=== PATIENT | male | born 1935 | race Caucasian/White ===

== ENCOUNTER 2019-12-28 11:42 | Inpatient (IN) | payer OTHER ==
[~2019-12-28] VITALS: Ht 170.2 cm; Wt 80.3 kg
[2019-12-28 11:20] VITALS: BP 146/80
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
[2019-12-28 20:57] VITALS: BP 134/85
[2019-12-28 21:50] VITALS: BP 134/85
--- NOTE | 2019-12-29 02:27 | NUR ---
Assumed pt care at 1900. Pt alert to self only but able to make needs known,VSS.Pt took HS meds whole without any problems. Pt is up with assist of 1 to BR. Denies pain on assessment. Pt hasn't had aggressive behaviors so far. Continues on 1:1 watch for SI/HI. Resting quietly at this time w/o any distress noted will continue to monitor pt.
[2019-12-29 13:36] VITALS: BP 134/85
--- NOTE | 2019-12-29 13:47 | NUR ---
MIHAI contacted of [facility] at [phone] and spoke to Sandra in memory care who said pt. has resided there for 30 days. She said she believes pt attempted suicide after he was not allowed to leave. She said he happened to be combative with cares the same day; this is unusual for him. MIHAI reviewed pt's DPOA docs and saw that Edilberto at [phone] was listed as first and [facility] is 2nd. MIHAI asked Sandra if she had written consent from Edilberto that he wanted [facility] to be responsible for the duties at this time. She said he has given consent verbally. She said they have only had communication with [facility]. MIHAI contacted Edilberto. No answer. MIHAI lft a msg asking for a return call.
--- NOTE | 2019-12-29 15:28 | NUR ---
ASSUMED CARE AT 0700 THIS MORNING. PT. REMAINS ON 1:1 AFTER SUICIDAL GESTURE THAT BROUGHT HIM HERE INITIALLY. DR. MYRICK DOES NOT WANT TO DISCONTINUE THIS DUE TO THE SERIOUSNESS OF THE GESTURE. HE PRESENTS DEPRESSED. HE IS NOT CARRING ON MUCH CONVERSATION AT THIS POINT. HE WAS COOPERATIVE WITH TAKING HIS MEDICATION TODAY WITH RN ASSISTANCE. HE IS [place], AND WAS UNABLE TO ATTEND GROUPS. HE HAS BEEN ON THE UNIT MUCH OF THE DAY, SITTING AT A TABLE.
[2019-12-29 17:13] VITALS: BP 110/86
--- NOTE | 2019-12-30 01:39 | NUR ---
Assumed care on 12/29/19 @ 19:15, 1:1 sitter with patient for SI watch. Noted to be extrememly hard of hearing. No level of loud speaking appears to be heard. Takes meds whole, and is compliant with medication administraiton. Cooperates with assessment, HRRR, Pacemaker noted to Left chest wall. Lung sounds Clear to Auscultation. ABD Normoactive bowel sounds over a round abdomen. Continent of B&B. Unable to make questions understood in mental health assessment. Continous monitoring by 1:1 sitter in effect. Bed in low position, bed alarm set.
[2019-12-30 01:46] VITALS: BP 110/86
--- NOTE | 2019-12-30 06:42 | NUR ---
Slept 9.0 hours overnight
[2019-12-30 07:53] VITALS: BP 102/59
--- NOTE | 2019-12-30 09:07 | NUR ---
ASSUMED CARE AT 0700 THIS MORNING. HE WAS SITTING IN A RECLINING CHAIR IN THE DINING ROOM. HE IS AWAKE, CALM. HE TOOK HIS MORNING MEDICATIONS WHOLE, WITHOUT PROBLEMS NOTED. HE IS EATING FAIRLY WELL AT MEALS.
[2019-12-30 12:20] VITALS: BP 102/59
[2019-12-30 19:21] VITALS: BP 149/70
[2019-12-30 19:22] VITALS: BP 149/70
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
[2019-12-31 06:38] VITALS: BP 160/89
[2019-12-31 08:00] VITALS: BP 160/89
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
--- NOTE | 2019-12-31 14:13 | NUR ---
MIHAI faxed updates for pt to Sandra with [facility] of [facility] at [phone]. MIHAI team will continue to follow pt during his stay on this unit.
--- NOTE | 2019-12-31 22:02 | NUR ---
Care assumed of patient at 191: Patient seated in w/c in dayroom with sitter at start of shift. Patient cooperative with nurse. Patient easily frustrated and irritable at times. Patient alert and oriented to person. States that he is in an "old folks home". Re-oriented to location and time. Patient confused and forgetful. Patient having disorganized speech at times. Nurse spoke loudly in his left ear. Appeared to have some difficulty processing questions asked. When patient was asked if he was having suicidal thoughts, he looked away and shrugged his shoulders. Nurse attempted to ask follow up questions but patient stated "I'm not talking about it". Patient declined to rate anxiety and depression. Patient observed pointing around the room and talking about his . Unknown what patient was doing. Patient presents with flat affect. Denies pain or discomfort. Patient continent of bladder and did request to use the bathroom. Patient has recently retired to bed and is laying quietly at this time.
[2020-01-01 07:35] VITALS: BP 112/61
[2020-01-01 09:36] VITALS: BP 112/61
--- NOTE | 2020-01-01 12:58 | NUR ---
PATIENT WAS UP IN WHEELCHAIR, IN THE DAYROOM WHEN CARE ASSUMED, SITTER BY HIS SIDE. PATIENT IS ALERT TO SELF, FORGETFUL, AND CONFUSED. PATIENT IS HARD OF HEARING, NURSE HAS TO SPEAK LOUDLY TO HIS LEFT EAR. PATIENT TOOK ALL MEDICATION WHOLE WITHOUT DIFFICULTY. HE IS EATING MEALS, AND DRINKING FLUID WELL, ABLE TO FEED SELF. PATIENT IS CONTINENT OF BOWEL/BLADDER HAS HAD FORMED BOWEL MOVEMENT X 2. PATIENT DENIES SUICIDAL IDEATION, NO SUICIDAL GESTURE NOTED AT THIS TIME. PATIENT NOT ABLE TO APPROPRIATELY RESPOND TO FURTHER ASSESSMENT QUESTIONS DUE TO COGNITIVE IMPAIRMENT. PATIENT ATTEMPTING TO CARRY ON CONVERSATION WITH STAFF ABOUT HIS PACEMAKER, BUT GETS DISORGAIZED ALONG THE LINE. AFFECT IS FLAT, AND BLUNTED, POOR EYE CONTACT. MOOD IS EUTHYMIC. PATIENT CURRENTLY IN BED AWAKE, SITTER AT BEDSIDE. PATIENT DENIES HAVING PHYSICAL PAIN, NO SIGN OF ACUTE DISTRESS NOTED AT THIS TIME, WILL MONITOR FOR SAFETY.
--- NOTE | 2020-01-01 21:11 | NUR ---
Care assumed of patient at 1915: Patient seated in bed at start of shift. Patient restless and agitated. Staff assisted patient to a w/c to join the dayroom. Patient remained agitated, impulsive, swinging at staff, attempted to push staff down with w/c and tilt w/c backward. Nurse spoke with patient and offered magazines. Patient was able to sit in dayroom for a few minutes, quietly, looking at magazines. Nurse approached patient to complete assessment. Patient originally calm and cooperative. Alert and oriented to person only. Denied pain and discomfort. Denied depression and anxiety. When asked about having suicidal thoughts and thoughts on killing himself, he pointed around the room and stated "Why would I kill myself, I'm killing 5 of those people". When asked why he would do that, he stated "I'm going to shoot them all, then pointed his finger as if he was shooting them". Attempted to speak with patient about it being inappropriate but this caused patient to become more irritated, frustrated and angry. Nurse approached patient several minutes later with HS medication. Attempted to educate patient on medications ordered, patient took the cup of pills then threw them across the table. Attempted to speak with patient about why he threw his medications but he started to yell "just leave me alone, go ". Nurse left for only a couple minutes when patient stood and started to lunge toward 1:1 sitter being physically aggressive. Required to be held for safety and aggression by staff x3. Security notified. Patient escorted to his room by security and staff x2. Patient interrogating security about their rank and badge number. Patient originally resistive but complied with going to his room. Once in his room, he was making verbal threats about "blowing your head off", "I'm sending people to get your ass". Geodon IM administered to left arm with staff assist x3. Patient continued to flip off nurse, yell and threaten. After approximately 15 minutes, patient was able to calm down and lay quietly in bed. After approximately 1 hour, patient was very calm and cooperative, saying please and thank you, assisted to the bathroom with mod assist x1. Patient was able to retire back to bed and fall asleep without difficulties. Sitter remains with patient at this time.
[2020-01-02 09:05] VITALS: BP 138/75
[2020-01-02 10:14] VITALS: BP 138/75
--- NOTE | 2020-01-02 13:47 | NUR ---
1340 RESUMMED CARE FROM OVERNIGHT SHIFT THIS AM, PATIENT IN DAY ROOM SITTING QUIET WITH 1:1. PATIENT ATE BREAKFAST TOOK MEDICATION WITHOUT INCIDENCE. PATIENTS ABDOMEN SOFT ROUND BOWEL SOUNDS PRESENT LUNGS CLEAR, PT DENIES HI/ HAS ACTIVE SI STILL. DENIES AH/VH PATIENT STATES "THAT HIS HAS GIVEN UP ON HIM". PATIENT HAS NOT DISPLAYED ANY MAJOR BEHAVIORS HAS CONFUSION AND IS COOPERATIVE WITH CARES. WILL CONTINUE TO MONITOR PATIENT FOR SAFETY AND BEHAVIORS.
[2020-01-02 19:47] VITALS: BP 145/79
--- NOTE | 2020-01-03 01:10 | NUR ---
Assumed care on 01/02/20 @ 19:15, Alert oriented x1 to person only. 1:1 sitter with patient at all times. [place], tremors bilat in uppper extremities. Displays a flat affect. Asks about Dana, his , says that she is over there, and gestures toward a staff member. HRRR, Lungs CTA bilat, ABD Normoactive bowel sounds, Reports BM today. Denies pain, states, everybody is going to get killed. Denies SI/HI. Continent of B&B Asleep in bed @ 2200, with staff on 1:1.
--- NOTE | 2020-01-03 06:46 | NUR ---
slept 7.4 hours
[2020-01-03 07:49] VITALS: BP 110/61
--- NOTE | 2020-01-03 16:12 | NUR ---
Pt was unable to particpate in SW group today
--- NOTE | 2020-01-03 18:00 | NUR ---
pT WAS OOB WITH 1;1 SITTER IN DAY ROOM MOST OF THE DAY . MARK ATE WELL, FLUIDS ENCOURAGED. MEDICATIONS TAKEN WHOLE WITH NO RESISTANCE. PT WAS SOCIAL AND INTERACTED WITH SOME OF HIS PEERS. PT HAD 2 LARGE BM'S TODAY. ASSESSMENT , LUNGS CLEAR, PEDAL PULSE EQUAL, AND BOWEL SOUNDS FAINT. ATTENED PT AND CLIENT PARTICIPATED IN GROUPS. MOOD SEEM TO BE MORE NICK TO DAY.
[2020-01-03 18:07] VITALS: BP 110/61
--- NOTE | 2020-01-03 20:15 | NUR ---
Assumed care on 01/03/20 @ 19:15, in bed with 1:1 sitter at bedside. Awake, alert and oriented x3. Oriented to person, place, and date. Complaining of noise from another patient down the encarnacion. Will continue to monitor continually for patient safety.
[2020-01-04 08:38] VITALS: BP 101/56
[2020-01-04 10:13] VITALS: BP 101/56
--- NOTE | 2020-01-04 11:31 | NUR ---
MIHAI received a message from Josefina Valerio with Case Management stating Adrianna is requesting a copy of pt's DPOA paperwork. MIHAI faxed the document this date to fax number [phone] which was provided by Josefina.
--- NOTE | 2020-01-04 12:23 | NUR ---
RT Progress Note- Edilberto's participation in the milieu is limited d/t isolating behaviors. He retreats to his room for "naps" between meals and declines participation in structured groups. Edilberto however chose to participate in exercise group this morning (01/03) and remained fully engaged, clapping for peers and engaging with them.
--- NOTE | 2020-01-04 15:25 | NUR ---
ASSUMED CARE AT 0700 THIS MORNING. PT. ON THE UNIT, DRESSED. HE IS PLEASANT AND COOPERATIVE WITH STAFF. HE REMAINS ON 1:1 AT ALL TIMES. HE HAS NOT ATTEMPTED SUICIDE TODAY BUT WOULD NOT CONTRACT TO NOT HURT HIMSELF IF THE OPPORTUNITY ARISES. HE HAS BEEN MORE INTERACTIVE TODAY WITH STAFF. HE CONTINUES TO BE DEPRESSED WITH FLAT AFFECT. HE ATE WELL AT MEALS.
[2020-01-04 22:00] VITALS: BP 101/56
--- NOTE | 2020-01-05 02:07 | NUR ---
Assumed care of patient this pm shift. Patient in his room in bed with a 1:1 sitter. Patient in good spirits and was happy to discuss a number of different fishing trips that he has been on. Patients affect euthmyic. Patient agreed to take his night time medications. Medications were crushed and put in putting. Patient is considered a falls risk per the falls protocol. Patient denies hi. Patient neither denies or confirms suicidality. Patient ambulates in a wheelchair due to falls risk. Patient is alert and oriented x4. Patient states that his bowels moved this evening. Patients assessment shows no signs of acute distress. Vital signs are stable. We will continue to monitor per hospital protocol.
[2020-01-05 07:37] VITALS: BP 98/62
[2020-01-05 08:47] VITALS: BP 98/62
--- NOTE | 2020-01-05 09:07 | NUR ---
ASSUMED CARE AT 0700 THIS MORNING. PT. UP, DRESSED AND IN THE DINNING ROOM. HE IS COOPERATIVE, REMAINS ON 1:1 AT ALL TIMES. HE CONTINUES TO NOT CONTRACT TO NOT SELF HARM IF GIVEN THE OPPORTUNITY. HE PRESENT WITH A CONTINOUS DEPRESSED MOOD AND FLAT AFFECT. TAKES HIS MEDICATIONS WITHOUT DIFFICULTY. HE WILL ATTEND GROUPS AND THEN WISH TO LAY DOWN IN BED UNTIL THE NEXT MEAL. HE IS TALKATIVE WITH HIS 1:1 AND THE NURSE. HE CONTINUES TO STATE HE KNOWS HIS FUTURE IS NOT GOOD DUT TO THE PARKINSON'S AND DEMENTIA ASSOCIATED WITH THAT.
[2020-01-05 13:13] VITALS: BP 98/62
[2020-01-05 20:00] VITALS: BP 111/70
[2020-01-05 21:50] VITALS: BP 111/70
--- NOTE | 2020-01-06 02:16 | NUR ---
Assumed care of patient this pm shift. Patient was in good spirits coloring at a table in the [facility] [place]. Patient denies pain. Patient denies hi/si. Patient is alert and oriented x3. Patients affect is euthmyic. Patient takes pills whole with thin fluids. Patient is medication adherent. Patient is a falls risk and is wearing a yellow shirt and yellow slippers. Patients assessment shows no signs of acute distress. Lung sounds are clear bilaterally. Heart tones are present with s1 s2. Bowel sounds are present. Patient is a 1:1 due to si. Patient states that he is regular with bowel movements. We will continue to monitor per hospital policy.
[2020-01-06 13:12] VITALS: BP 109/65
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
--- NOTE | 2020-01-06 19:18 | NUR ---
Care of patient assumed at 1915. Patient is sitting in day room in recliner. Calm and cooperative with assessment. Confused but pleasant. A/O x 2. Denies pain. Denies SI/HI. States he wants to get up and walk more so that he can be discharged. Talks at length about wanting to go to the fair and dance with his . Notified COMMERCIAL SALES CONSULTANT that he needed to use the toilet, and was assisted to his bathroom. Compliant with HS meds. Requested to go to bed shortly after. Assisted to bed and was sleeping when next 12 minute check completed.
[2020-01-06 20:02] VITALS: BP 119/81
[2020-01-07 07:41] VITALS: BP 104/52
--- NOTE | 2020-01-07 10:22 | NUR ---
Nutrition: Assessed due to LOS. Admit: suicidal ideation, here w/ dementia, hallucinations, impulsive. Hx includes dementia, Parkinson's disease, HTN, hypothyroidism, hx recurrent falls. Pt is deemed a high risk pt (given SI) and on 1:1 monitoring. On a regular diet and eating incredible. Pt has consumed 100% of ALL meals. 100% meal average the last 7 days, 12/30 - 01/05. Psych notes indicate pt still has clear confabulation and confusion. Note low dose remeron just added which can have positive nutrition side effects, though nutrition intake already doing so well. No weight hx to review. Pt at 175#, BMI 27.4 kg/m2. No active nutrition problems or interventions needed at this time. Maintain low nutrition risk.
--- NOTE | 2020-01-07 13:03 | NUR ---
VISIBLE IN DAYROOM WITH PEERS-ATTENDS SCHEDULED ACTIVITIES WITH GOOD LEVEL OF PARTICIPATION. ORIENTED TO PERSON/HOSPITAL-CONVERSATION AT TIMES DOSORGANIZED AND NON-GOAL DIRECTED BUT NO NOTED PSYCHOSIS DURING INTERACTIONS WITH THIS RN. DOES BECOME MILDLY AGITATED WHEN ASKING TO GO TO ROOM "THESE PEOPLE GET TO ME" INFORMED OF MD ORDER TO REMAIN OUT OF ROOM DURING DAY TO PATRICIA HE STATES ANGRILY "I AM YOU BOSS NOT THE DR" TRMAINS ON HIGH FALLS RISK WITH FALLS PRECAUTIONS IN PLACE-REMAINS IMPULSIVE TTEMPTING TO GET UP WITHOUT ASSIST 2-3 YIMES-MILD AGITATION WITH REDIRECTION. APPETITE GOOD. DENIES PAIN
[2020-01-07 19:30] VITALS: BP 132/74
--- NOTE | 2020-01-08 04:04 | NUR ---
01-08-20 CARE TRANSFERED AT 1914. 1919 PT SUPINE RESTING WITH EYES CLOSED, EASILY AROUSED TO VOICE, PT PRESENT CALM AND COOPERATIVE, AAOX2, VSS, RR EVEN AND NONLABORED. PT DENIES ANY PAIN AND SI/SH/HI/VAH AT THIS TIME. PT CURRENTLY 1:1 AT ALL TIMES PER SHIFT REPORT. DURING MEDICATION ADMIN. PT HAD ZERO DIFFICULTIES. THROUGHOUT NURSING ROUNDS ZERO S/S OF ACUTE EMOTIONAL OR MEDICAL DISTRESS NOTED. WILL CONTINUE TO MONITOR PER B PROTOCOL.
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
[2020-01-08 09:12] VITALS: BP 125/76
[2020-01-08 10:34] VITALS: BP 125/76
--- NOTE | 2020-01-08 12:50 | NUR ---
1200 RESUMMED CARE FROM OVERNIGHT SHIFT THIS AM, PATIENT IN DAY ROOM TALKING WITH ONE TO ONE. PATIENT ATE BREAKFAST TOOK MEDICATION WITHOUT INCIDENCE. PATIENTS ABDOMEN SOFT ROUND BOWEL SOUNDS PRESENT LUNGS CLEAR, PATIENT UP WALKING HALLS WITH WALKER. PATIENT AROUND 12:30 STARTED BEING TEARFUL AND ASKING ABOUT . I TALKED WITH PATIENT AND ASKED HIM WHY HE IS CRYING HE STATES HIS HEART HURTS. I WENT TO GET PATIENTS LUNCH BECAUSE HE REFUSED AT FIRST. PATIENT IS NOW SITTING UP EATING HIS LUNCH, AND I ENCOURAGED PATIENT TO TALK TO HIS ONE TO ONE AND NOT ISOLATE SO MUCH. PATIENT DENIES HI/AH/VH AT PRESENT, PATIENT STILL HAS SI AT PRESENT WILL CONTINUE TO MONITOR PATIENT FOR SAFETY AND BEHAVIORS.
[2020-01-08 18:52] VITALS: BP 127/99
--- NOTE | 2020-01-09 03:32 | NUR ---
01-07-20 CARE TRANSFERED 5 PT IN DAY ROOM IN RECLINER WITH 1:1; 193 PT AAOX2, SKIN W/D, VSS, RR EVEN AND NONLABORED ON RA. PT PRESENTS A LITTLE IRRITATED, REMAINED CALM AND COOPERATIVE THROUGHOUT NURSING ASSESSMENT. PT DENIES ANY PAIN. PT IS CURRENTLY ON 1:1 AT ALL TIMES R/T SI WITH UNSUCCESSFULLY ATTEMPT(S), PT DENIES ANY SI/SH/HI/VAH AT THIS TIME. DURING MEDICATION ADMIN PT HAD ZERO DIFFICULTIES PT REPORTED HE IS NOT HAVING SI. APPROXIMATELY 2300 PT WAS MOVED TO DAY ROOM R/T STAFFING CHALLENGE AND NO 1:1 AVAILABLE PER DIRECTOR OF [facility]. THROUGHOUT NURSING ROUNDS ZERO ACUTE S/S OF EMOTIONAL OR MEDICAL DISTRESS. WILL CONTINUE TO MONITOR PER [facility] PROTOCOL.
[2020-01-09 07:46] VITALS: BP 136/68
--- NOTE | 2020-01-09 08:40 | NUR ---
Assumed care 0700. Up self feeding for breakfast after tray set up. Alert oriented to person and place. Noticeable hand tremors bilaterally. He uses walker, is on 1 to 1 observation with stand by assist for toileting..
[2020-01-09 14:30] LABS: ABSOLUTE NEUTROPHILS 2.9 thou/uL (1.4-8.2); EOSINOPHILS 3.6 % (0.0-3.0); HEMATOCRIT 43.2 % (42.0-52.0); HEMOGLOBIN 14.1 gm/dL (14.0-18.0); LYMPHOCYTES 27.6 % (24.0-44.0); MCH 28.6 pg (26.0-34.0); MCHC 32.6 g/dL (28.0-37.0); MCV 87.7 fL (80.0-100.0); MONOCYTES 7.9 % (1.0-8.0); PLATELET COUNT 235 thou/uL (150-400); POLYS 59.9 % (36.0-66.0); RBC 4.93 mil/uL (4.50-6.00); RDW 14.5 % (10.5-14.5); WBC 4.9 thou/uL (4.0-11.0)
[2020-01-09 14:47] LABS: ALBUMIN 3.9 g/dL (3.4-5.0); CALCIUM 9.1 mg/dL (8.5-10.1); CREATININE 1.2 mg/dL (0.7-1.3); MAGNESIUM 2.2 mg/dL (1.8-2.4); TOTAL BILIRUBIN 0.4 mg/dL (0.2-1.0); TOTAL PROTEIN 7.7 g/dL (6.4-8.2)
[2020-01-09 15:11] LABS: TSH 0.749 uIU/mL (0.358-3.740)
--- NOTE | 2020-01-09 18:10 | NUR ---
Patient was scanned late AM with 87 ml. residual after voiding in toilet thus not requiring straight cathing. Quiet, pleasant, compliant with meds. LBM 01/09/20. Lungs clear, heart rhythm regular, abdomen + bowel sounds, Lower legs/ankles with edema. Toenails trimmed with a slight willam from a nail on left foot 2nd toe. Toe cleansed, bandaid applied. Denies SI/HI/AH/VH. Call placed to Dr. Gee to report bladder scanner result with no return call yet. Pt. has a white scab on left buttock-tiny. Skin protective ointment OTC applied. He was not observed by this advertising writer as initiating conversation. Hearing aids for the night removed to green container labelled with his name with battery compartment open to conserve battery power. Has had sitter 1:1 out of dayroom; in dayroom allowed to mingle with peers which mostly he observed.
[2020-01-09 20:41] VITALS: BP 138/82
--- NOTE | 2020-01-10 05:22 | NUR ---
Assumed care on 01/09/20, 1:1 when in room. Cooperated with assessment, A&Ox2 to self and knows is in hospital. Last reported bm on 01/08. Cooperates with medication administration, up to toilet several times in the night. On fall precautions, and uses a walker to ambulate. @ 0500 C/O lower back pain. Muscle rub applied to lower back and Tylenol 650 provided. Will continue to monitor continually with 1:1 observer while in room. Bed in low position.
[2020-01-10 08:52] VITALS: BP 106/67
--- NOTE | 2020-01-10 14:02 | NUR ---
MIHAI spoke with Sandra with [facility] of [facility] and arranged for d/c to occur on 01/11 @11am. Sandra will arrange transportation. MIHAI provided an update to [facility]. MIHAI faxed updates from the weekend to Sandra. MIHAI team will continue to follow pt during his stay on this unit.
--- NOTE | 2020-01-10 17:21 | NUR ---
pt wasin day room this am wheni entred the unit. Pt appitite is fair, pills taken whole with out resistance, Assesment , lungssounded clear,x2 bowel sounds ctive, last bm today x3 small formed stools. pdal pulse equal. Pt attended groups today and participated. covid19 testdone today nd sent to lab. Pt saaaaaaaaaaaaid he felt happier than he been in a while. pt attended pt..wlking in hallways with walker. .Fluids encouraged,
[2020-01-10 19:33] VITALS: BP 116/70
--- NOTE | 2020-01-11 01:25 | NUR ---
ASSUMED CARE ON 01/10/20, @ 19:15. COOPERATIVE WITH CARE AND ASSESSMENT. HRRR, LUNGS CTA, ABD N X 4Q. REPORTS THE HOSPITAL FOOD IS GOOD. BMX3 TODAY. DENIES SI HI, DENIES ANXIETY AND DEPRESSION. TALKS ABOUT PEOPLE HURTING OTHER PEOPLE. REINFORCED PATIENT'S SAFETY HERE.
[2020-01-11 01:57] VITALS: BP 116/70
[2020-01-11 07:42] VITALS: BP 115/76
[2020-01-11 08:30] VITALS: BP 115/76
--- NOTE | 2020-01-11 09:13 | NUR ---
PT HAS BEEN UP WITH WALKER WALKING AROUND SOMETIMES FAST, ENCOURAGED PT TO SLOW DOWN. PT TOOK MEDS WITHOUT ANY ISSUES. PT PAPER TOWELS ARE TAKEN OUT OF ROOM PER DR. PADILLA.
--- NOTE | 2020-01-11 12:16 | NUR ---
RT Progress Note- Edilberto has become an active participant within the milieu and recreation therapy groups. He particularly enjoys music and exercise groups. He has not expressed or displayed any suicidal thoughts or behaviors during RT interaction. His mood has improved.
--- NOTE | 2020-01-11 13:20 | NUR ---
MIHAI spoke with Sandra after receiving a vm that [facility] staff are concerned about pt still being on -1 and his behavior on 01/06. She is asking before pt returns for pt's 1 to be removed. MIHAI relayed this information to Dr. Huerta who agreed d/c pt on Friday. MIHAI provided an update to [facility]. MIHAI team will continue to follow pt during his stay on this unit.
[2020-01-11 19:24] VITALS: BP 132/63
--- NOTE | 2020-01-12 03:34 | NUR ---
01-11-20 CARE TRANSFERED 1914 OBSERVED PT IN ROOM SITTIN ON BED. 1944 PT AAOX2, SKIN W/D, VSS, RR EVEN AND NONLABORED ON RA. PT WAS CALM AND COOPERATIVE DURING NURSING ASSESSMENT. PT IS CURRENTLY ON 1:1 R/T SI. PT DENIES SI/HI/VAH AT THIS TIME. PT DENIES PAIN. DURING MEDICATION ADMIN PT HAD NO DIFFICULTIES. THROUGHOUT NURSING ROUNDS PT HAS NO S/S OF ACUTE EMOTIONAL OR MEDICAL DISTRESS. WILL CONTINUE TO MONITOR PER [facility] PROTOCOL.
[2020-01-12 07:49] VITALS: BP 100/59
--- NOTE | 2020-01-12 09:38 | NUR ---
Assumed care 0700. Bo lab=reported Covid=Negative. Remains on 1 to 1 observation for safety from suicidal ideation/behaviors. Denied pain/other complaints.
--- NOTE | 2020-01-12 13:34 | NUR ---
MIHAI scheduled an appt with Dr. Huerta in the outpatient clinic for February 15, 2020 @1300. MIHAI provided this update to Libertad who asked fro a telehealth appt. MIHAI contacted Dr. Huerta's office and switched the appt to telehealth. MIHAI also emailed Libertad a copy of a MIHAI Handout for pt. MIHAI team will continue to follow pt during his stay on this unit.
[2020-01-12 18:06] VITALS: BP 100/59
--- NOTE | 2020-01-12 18:14 | NUR ---
ASSUMED CARE AT 0700 THIS MORNING. PT. HAS BEEN UP AND ON THE UNIT MUCH OF THE DAY. NO NEW PROBLEMS NOTED. HE IS DENYING SI/HI AND AVH AT THIS TIME. HE HAS TAKEN HIS MEDICATIONS WITHOUT PROBLEM NOTED. HE IS PLEASANT AND COOPERATIVE WITH STAFF THEY ARE WORKING WITH HIM. HE IS TAKING HIS MEDICATIONS WITHOUT PROBLEMS NOTED.
[2020-01-12 19:35] VITALS: BP 129/75
--- NOTE | 2020-01-13 03:44 | NUR ---
01-12-20 CARE TRANSFERED AT 1914 OBSERVED PT SUPINE IN BED RESTING WITH EYES CLOSED. 1939 PT SITTING ON SIDE OF BED WITH EYES OPEN, PT AAOX2, VSS, RR EVEN AND NONLABORED ON RA. PT DENIES ANY PAIN OR SI/SH/HI/VAH. PT REMAINED CALM AND COOPERATIVE DURING NURSING ASSESSMENT. DURING MEDICATION ADMIN. PT HAD NO DIFFICULITES DURING MEDICATION ADMIN. LATER ASSISTED PT UP TO BATHROOM AND PT AGAIN DENIED SI/SH/HI; WILL CONTINUE TO MONITOR FOR THIS IS DAY ONE THAT PT HAS BEEN OFF 1:1 FOR SI ATTEMPT(S). WHEN ASKING PT AGAIN PT SMILED AND STATED "LIV OK, LIV READY TO GO HOME". THROUGHOUT NURSING ROUNDS ZERO S/S OF ACUTE EMOTIONAL OR MEDICAL DISTRESS. WILL CONTINUE TO MONITOR PT PER [facility] PROTOCOL.
[2020-01-13 07:25] VITALS: BP 97/57
--- NOTE | 2020-01-13 07:46 | NUR ---
0700 ASSUMED CARE OF PATIENT, PATIENT SITTING IN DAYROOM AT THAT TIME. 0735 PATIENT SITTING QUIETLY AT TABLE. NO C/O PAIN, DENIES NEEDS. PATIENT STATES DAILY GOAL IS "TO GET OUT OF HERE". PATIENT STATES CONCERN IS "SELLING HIS HOUSE, NEIGHBOR IS HELPING ME". LUNG SOUNDS CLEAR, BS ACTIVE. VS- BP 97/57 P 63 RESP 16 TEMP. 98.0 O2 SATS 96%. PATIENT NOTED WITH YELLOW SHIRT ON AND CHAIR ALRM IN PLACE.
--- NOTE | 2020-01-13 12:04 | NUR ---
MIHAI faxed updates to BD of OP. MIHAI contacted Sandra to confirm pt's discharge tomorrow. She said she will review pt's updates and contact SW within an hour. SW team will continue to follow pt during his stay on this unit.
[2020-01-13 19:40] VITALS: BP 114/73
[2020-01-13] MEDS ORDERED: ARICEPT10 M1 PO (20:33)
[2020-01-13] MEDS ORDERED: NEURONTIN600 MG PO (20:34)
[2020-01-13] MEDS ORDERED: OLANZAPINE ODT5 MG PO (20:34)
[2020-01-13] MEDS ORDERED: NAMENDA 5 MG TAB5 M1 PO (20:35)
[2020-01-13] MEDS ORDERED: ZYPREXA ZYDIS5 MG PO (20:35)
[2020-01-13] MEDS ORDERED: CARBIDOPA-LEVO1 EAC9 PO (20:35)
[2020-01-13] MEDS ORDERED: BUSPIRONE HCL5 MG PO (20:35)
[2020-01-13] MEDS ORDERED: MELATONIN5 M1 PO (20:36)
[2020-01-13] MEDS ORDERED: REMERON 30 MG T30 M1 PO (20:36)
[2020-01-13 22:20] VITALS: BP 114/73
--- NOTE | 2020-01-14 01:19 | NUR ---
Assumed care of patient this pm shift. Patient in good spirits sitting in the mileu at the start of the shift. Patient denies pain, patient denies hi/si. Patients affect is blunted. Patient is alert and oriented to person, place, and situation. Patient takes medications whole with thin fluids. Patient is medication adherent. Patient ambulates with a walker. Patients assessment shows no signs of acute distress. Patients assessment shows clear breath sounds, active bowel sounds, and s1 s2 heard with auscultation. Patient does not show any signs of aggressive behaviors. We will continue to monitor per hospital protocol.
[2020-01-14 07:24] VITALS: BP 132/61
--- NOTE | 2020-01-14 11:08 | NUR ---
MIHAI D/C NOTE MIHAI faxed discharge docs and COVID results to Sandra Miles of OP. MIHAI will file these docs with confirmation page in pt's file. No other needs to address at this time.
--- NOTE | 2020-01-14 11:36 | NUR ---
DISCHARGE INSTRUCTIONS REVIEWED WITH DAUGHTER DEREK FIELDS-SHE HAD SEVERAL QUESTIONS ABOUT MEDICATIONS AND EDUCATION PROVIDED-SHE STATES UNDERSTANDING AND DENIES QUESTIONS OR CONCERNS. [facility] CALLED FOR NURSING REPORT AT 0830 AND AFTER BEING TRANSFERED TO SEVERAL NURSING STATIONS MESSAGE LEFT FOR [facility] NURSING STAFF TO CALL FOR NURSING REPORT IF NEEDED. PT DC AT 1130 VIA WC ACCOMPNIED BY HOSPITAL STAFF-ALERT AND UP 9IN MOOD AT TIME OF DC-DENIES SI/SH/HI OR COMPLAINTS OF PAIN/DISCOMFORT-PERSONAL BELONGINGS SENT WITH PT.
== END 2020-01-14 11:30 | DRG 57 ==
LOC: SBH 11:42
PROVIDERS: Internal Medicine; ADMIT Psychiatry & Neurology Psychiatry; ATTEND Psychiatry & Neurology Psychiatry
DX: G20 Parkinson's disease (principal); F02.81 Dementia in other diseases classified elsewhere, unspecified severity, with behavioral disturbance; I11.0 Hypertensive heart disease with heart failure; T14.91XA Suicide attempt, initial encounter; E03.9 Hypothyroidism, unspecified; J44.9 Chronic obstructive pulmonary disease, unspecified; I50.9 Heart failure, unspecified; K21.9 Gastro-esophageal reflux disease without esophagitis; N40.0 Benign prostatic hyperplasia without lower urinary tract symptoms; G62.9 Polyneuropathy, unspecified; Z66 Do not resuscitate; F32.9 Major depressive disorder, single episode, unspecified; G47.33 Obstructive sleep apnea (adult) (pediatric); Z20.828 Contact with and (suspected) exposure to other viral communicable diseases; Z88.8 Allergy status to other drugs, medicaments and biological substances; Z79.899 Other long term (current) drug therapy
CPT/HCPCS: 10880

== ENCOUNTER 2020-12-14 14:56 | Emergency (ER) | payer OTHER ==
[~2020-12-14] VITALS: Ht 182.9 cm; Wt 113.4 kg
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
[~2020-12-14 14:56] MED LIST: ARICEPT10 M1 PO; BUSPIRONE HCL5 MG PO; CARBIDOPA-LEVO1 EAC9 PO; MELATONIN5 M1 PO; NAMENDA 5 MG TAB5 M1 PO; NEURONTIN600 MG PO; OLANZAPINE ODT5 MG PO; REMERON 30 MG T30 M1 PO; ZYPREXA ZYDIS5 MG PO
[2020-12-14 15:39] LABS: ABSOLUTE NEUTROPHILS 3.2 thou/uL (1.4-8.2); BASOPHILS 0.9 % (0.0-2.0); EOSINOPHILS 3.3 % (0.0-3.0); HEMATOCRIT 37.6 % (42.0-52.0); HEMOGLOBIN 12.2 gm/dL (14.0-18.0); LYMPHOCYTES 25.1 % (24.0-44.0); MCH 28.4 pg (26.0-34.0); MCHC 32.6 g/dL (28.0-37.0); MCV 87.1 fL (80.0-100.0); PLATELET COUNT 212 thou/uL (150-400); POLYS 61.7 % (36.0-66.0); RBC 4.31 mil/uL (4.50-6.00); RDW 14.9 % (10.5-14.5); WBC 5.2 thou/uL (4.0-11.0)
[2020-12-14 15:51] LABS: ANION GAP 6 mmol/L (7-16); BUN 29 mg/dL (7-18); CALCIUM 8.6 mg/dL (8.5-10.1); CHLORIDE 106 mmol/L (98-107); CO2 30 mmol/L (21-32); GLUCOSE 108 mg/dL (74-106); POTASSIUM 4.1 mmol/L (3.5-5.1); SODIUM 142 mmol/L (136-145)
[2020-12-14 15:56] LABS: ALBUMIN 3.4 g/dL (3.4-5.0); SGOT 21 U/L (15-37); SGPT 21 U/L (30-65); TOTAL BILIRUBIN 0.3 mg/dL (0.2-1.0); TROPONIN-I <0.06 ng/mL (<0.06)
[2020-12-14 15:56] LABS: URINE BILIRUBIN NEGATIVE (Negative); URINE BLOOD 2+ (Negative); URINE CLARITY CLEAR; URINE COLOR YELLOW; URINE GLUCOSE-RANDOM* NEGATIVE (Negative); URINE KETONES NEGATIVE (Negative); URINE LEUKOCYTES-REFLEX NEGATIVE (Negative); URINE NITRITE-REFLEX NEGATIVE (Negative); URINE PROTEIN (DIPSTICK) NEGATIVE (Negative); URINE SPECIFIC GRAVITY >= 1.030 (1.005-1.035); URINE UROBILINOGEN 0.2 E.U./dl (0.2-1.0)
[2020-12-14 16:03] LABS: CASTS None Seen /LPF (None Seen); SQUAMOUS 0-3 Few /LPF (0-3)
[2020-12-14 16:04] LABS: CRYSTALS None Seen /LPF (None Seen); URINE RBC 3-10 Few /HPF (NONE SEEN); URINE WBC-REFLEX 0-5 Rare /HPF (0-5)
[2020-12-14 16:05] LABS: BACTERIA-REFLEX 1-9 Few /HPF (None Seen)
[2020-12-14 16:37] VITALS: BP 133/77
--- NOTE | 2020-12-15 07:19 | EKG ---
[place] [address] [address] [place] [address] ELECTROCARDIOGRAM REPORT Name: MARK HAND [id number] Admission: 12/14/20 Attend Phys: Discharge: 12/14/20 Date of : 35 Report #: [id number] [facility] ED Test Date: 2020-12-14 Test Time: 15:30:49 Pat Name: MARK HAND Department: Room: Gender: Avionics Electronics Technician: ROBERTARIANALIANNA : 1935 Requested By: Michael Hartmann Order Number: [id number] MD: Jeremy Alarcon Measurements Intervals [place] Rate: 59 P: 12 WV: 199 QRS: -56 QRSD: 97 T: 43 QT: 432 QTc: 428 Interpretive Statements Sinus rhythm Abnormal R-wave progression, early transition No previous ECG available for comparison Electronically Signed On 12-15-2020 7:18:50 CDT by Jeremy Alarcon [email or web address] <ELECTRONICALLY SIGNED> By: Jeremy Alarcon MD, [facility] 12/15/20 0718 1530 1530 Jeremy Alarcon MD, FACC /EPI
== END 2020-12-14 16:40 ==
LOC: ER 14:56
PROVIDERS: Emergency Medicine
DX: R45.1 Restlessness and agitation (principal); Z20.822 Contact with and (suspected) exposure to COVID-19; E03.9 Hypothyroidism, unspecified; Z95.0 Presence of cardiac pacemaker; Z88.8 Allergy status to other drugs, medicaments and biological substances

== ENCOUNTER 2020-12-14 17:10 | Inpatient (IN) | payer OTHER ==
[~2020-12-14] VITALS: Ht 165.1 cm; Wt 86.2 kg
[2020-12-14 18:00] VITALS: BP 142/69
[2020-12-14 18:12] LABS: CHOLESTEROL 182 mg/dL (<200); HDL CHOLESTEROL 38 mg/dL (>40); LDL CHOLESTEROL 100 mg/dL (<100); TC:HDL 4.8 Ratio (Not establshd); TRIGLYCERIDE 220 mg/dL (<150); VLDL 44 mg/dL (<40)
[2020-12-14 18:13] LABS: SERUM ASSESSMENT Clear
[2020-12-14 19:48] VITALS: BP 149/62
[2020-12-14 20:20] VITALS: BP 149/62
--- NOTE | 2020-12-14 20:23 | NUR ---
1455 PATIENT ADMITED TO [facility] VIA CART. ED STAFF ASSISTED PT TO BR PT VOIDED. PATIENT ASSISTED TO BED X2 ASSIST. PATIENT DRESSED IN SHIRT AND BRIEF. PATIENT CALM, [place] SO PATIENT UNABLE TO ANSWER QUESTION QUICKLY. VS 142/69, 93, 18, 96.1, 97%. ID BRACLET APPLIED, FALL RISK AND ALLERGY BRACLET APPLIED. LS CLEAR, BS ACTIVE, ABD SOFT. NO C/O PAIN. SKIN INTACT. SCARS TO SCALP AREA NOTED. PATIENT SITS ON SIDE OF BED FOR DINNER, EATS 100%. WHEN ADVICE NURSE ASKS PT ABOUT SI, PATIENT STATES NOT RIGHT NOW. PATIENT RESTING IN BED QUIETLY WITH BED ALARM ON.
--- NOTE | 2020-12-15 02:12 | NUR ---
PATIENT CARE WAS RESUMED AT 1900. HE WAS IN HIS ROOM. ALERT AND ORIENTED. ABLE TO VERBALIZE NEEDS. LUNGS ARE CLEAR, BS ACTIVE 4 QUAD. ABD IS SOFT N0N TENDER. HE DENIES SI/AVH/HI AND PAINS. HE TOOK HIS MEDS WHOLE.BED IS ALARMED, LOCKED AND LOW. ABLE TO VERBALIZE ANY ISSUES. CONTINUE CARE AND MONITOR
[2020-12-15 04:06] LABS: GLYCOHEMOGLOBIN (HGB A1C) 5.8 % (4.8-5.6)
--- NOTE | 2020-12-15 09:44 | NUR ---
Nutrition: Pt admitted with major depressive disorder to [facility] unit. PMH: dementia, Parkinsons, HTN, falls. Pt was admitted last summer and ate 100% of meals, So far eating 100% of meals this admit also. Current weights up 11# since last admit. Meds: Vitamin D, mirtazapine. Hyperlipidemia noted. A1C 5.8. No acchuchecks being taken. Consider adding heart healthy diet restrictions if physician deems appropriate. Low nutrition risk
[2020-12-15 10:02] VITALS: BP 130/65
--- NOTE | 2020-12-15 12:53 | NUR ---
1353 RESUMMED CARE FROM OVERNIGHT SHIFT THIS AM, PATIENT IN DAY ROOM QUIET IN ELISA CHAIR. PATIENT ATE BREAKFAST TOOK MEDICATION WITHOUY INCIDENCE. PATIENT UNABLE TO TELL ME ABOUT SI/HI/AH/VH AT PRESENT DUE TO COGNITIVE DISTURBANCE. PATIENTS ANDOMEN SOFT BOWEL SOUNDS PRESENT; PATIENT HAD MEDIUM SIZE BOWEL MOVEMENT. PATIENTS LUNGS CLEAR PATIENT THIS AM WHEN TAKING PATIENT TO PATIENT RESTROOM; PATIENT TRIED TO SPIT ON ME. PATIENT IS SOMETIMES IMPULSIVE WHEN TRYING TO DO CARES AND WILL TRY TO GET UP BY HIMSELF. PATIENT IS REDIRECTABLE WILL CONTINUE TO MONITOR PATIENT FOR SAFETY AND BEHAVIORS.
[2020-12-15 19:52] VITALS: BP 123/53
[2020-12-16 00:08] VITALS: BP 123/53
--- NOTE | 2020-12-16 02:15 | NUR ---
12/15/2020 - assumed care from day shift nurse, sitting in day room talking to self, talking about different things did mention that he knew the current president. disorganized thoughts and impulsive as far as getting up without waiting for assistance. Pt is alert to self and pleasant, denies SI/HI/AH/VH. Will continue to monitor per [facility] protocol.
[2020-12-16 06:04] LABS: HEMATOCRIT 40.1 % (42.0-52.0); HEMOGLOBIN 13.1 gm/dL (14.0-18.0); MCH 28.5 pg (26.0-34.0); MCHC 32.5 g/dL (28.0-37.0); MCV 87.7 fL (80.0-100.0); RBC 4.58 mil/uL (4.50-6.00); RDW 14.7 % (10.5-14.5)
[2020-12-16 06:26] LABS: CALCIUM 8.9 mg/dL (8.5-10.1); CREATININE 1.1 mg/dL (0.7-1.3); MAGNESIUM 2.2 mg/dL (1.8-2.4); POTASSIUM 4.2 mmol/L (3.5-5.1)
[2020-12-16 06:48] LABS: FOLIC ACID 12.6 ng/mL (8.6-58.9)
[2020-12-16 09:30] VITALS: BP 130/73
--- NOTE | 2020-12-16 11:39 | NUR ---
PATIENT WAS IN BED ASLEEP WHEN CARE ASSUMED, ASSISTED UP IN W/C BY TWO STAFF. PATIENT TAKEN TO DAYROOM FOR BREAKFAST, HE FED SELF, CONSUMED ABOUT 75%, HE TOOK MORNING MEDICATION WHOLE WITHOUT DIFFICULTY. PATIENT IS ALERT AND ORIENTED X 1, HE IS FORGETFUL, AND PLEASANTLY CONFUSED. PATIENT DENIES SUICIDAL IDEATION, NOT ABLE TO APPROPRIATELY RESPOND TO FURTHER ASSESSMENT QUESTIONS DUE TO COGNITIVE IMPAIRMENT. PATIENT HAD EMESIS X 1 -UNDIGESTED FOOD. DR. HILL NOTIFIED, HE GAVE ORDER FOR COMPAZINE 5MG Q 4HR PRN, AND KUB 1 VIEW. COMPAZINE GIVEN, AWAITING RADIOLOGY TO COMPLETE KEB. PATIENT DENIES HAVING PHYSICAL PAIN. AFFECT IS FLAT/BLUNTED, MOOD IS DEPRESSED. NO SIGN OF ACUTE DISTRESS NOTED AT THIS TIME, WILL MONITOR FOR SAFETY.
[2020-12-16 19:18] VITALS: BP 108/65
--- NOTE | 2020-12-17 00:33 | NUR ---
12/16/20- assume care from day shift, pt is alert to self not place or time. Pt was wandering in his w/c and he was found in another pt room trying to use the bathroom and go to bed. He was difficult to redirect but he eventually allowed the PCT and nurse to take him to his correct room. He then converse with this nurse. He took his medication whole with water without difficulty. Pt encouraged to drink water. Lungs clear, HRR, Active bowel sounds, will continue to monitor through out shift.
[2020-12-17 00:53] VITALS: BP 108/65
--- NOTE | 2020-12-17 00:53 | NUR ---
Pt O2 sat was low earlier 83, pt color was within normal limits, not short of breath, O2 sat rechecked and it was 96% on room air, pt not exhibiting any s/s of dyspnea, or tachypnea. will continue to monitor.
[2020-12-17 08:50] VITALS: BP 115/62
[2020-12-17 09:30] VITALS: BP 115/62
--- NOTE | 2020-12-17 12:35 | NUR ---
1235 RESUMMED CARE FROM OVERNIGHT SHIFT THIS AM, PATIENT IN DAY ROOM QUIET. PATIENT ATE BREAKFAST TOOK MEDICATION WITHOUT INCIDENCE. PATIENT CANNOT TELL ME ABOUT SI/HI/AH/VH DUE TO COGNITIVE DISORDER. PATIENTS ABDOMEN SOFT BOWEL SOUNDS PRESENT PATIENTS LUNGS CLEAR. PATIENT SITS IN GROUP MINIMAL PARTICIPATION. WILL CONTINUE TO MONITOR PATIENT FOR SAFETY AND BEHAVIORS.
[2020-12-17 19:11] VITALS: BP 120/48
[2020-12-17 20:40] VITALS: BP 120/48
--- NOTE | 2020-12-17 23:53 | NUR ---
PATIENT CARE WAS RESUMED AT 1900. HE WAS ALERT AND ORINETD WITH SOME CONFUSSION. LUNGS ARE CLEAR BS ACTIVE X4 QUADS. HE DENIES, SI. AVH/ HI. HE TOOK HIS MEDS WHOLE AND HE IS A MAX ASSIST WITH CARE. BED IS LOW, ALARMED, AND LOCK. HE AHS YELLOW SOCKS AND TOP ON. Q12 MINS CHECK IS ONGONIG. NO BEHAVOIR NOTED AT TIHS TIME. CONTINUE CARE AND MONITOR.
[2020-12-18 08:34] VITALS: BP 129/73
[2020-12-18 11:30] VITALS: BP 129/73
--- NOTE | 2020-12-18 13:14 | NUR ---
1314 RESUMMED CARE FROM OVERNIGHT SHIFT THIS AM. PATIENT IN DAY ROOM SITTING QUIET. PATIENT ATE BREAKFAST TOOK MEDICATION WITHOUT INCIDENCE. PATIENT DENIES SI/HI/AH/VH AT PRESENT PATIENT HAS NOT DISPLAYED BEHAVIORS IN THE LAST 3 DAYS. PATIENTS ABDOMEN SOFT BOWEL SOUNDS PRESENT PATIENTS LUNGS CLEAR. PATIENT PARTICIPATES IN GROUPS PATIENT HAS TREMORS IN BOTH ARMS/HANDS. WILL CONTINUE TO MONITOR PATIENT FOR SAFETY AND BEHAVIORS.
[2020-12-18 20:52] VITALS: BP 118/81
--- NOTE | 2020-12-19 04:48 | NUR ---
12-18-20 CARE TRANSFERRED 1899 OBSERVED PT SUPINE RESTING WITH EYES CLOSED. LATER PT AAOX1, VSS, RR EVEN AND NONLABORED ON RA. PT DENIES PAIN AND SI/HI. PT PRESENTS CALM AND COOPERATIVE, AND OFTEN PAT'S THIS SPAR MACHINE OPERATOR ARM. PT WAS ASSISTED TO BEDSIDE COMMODE SMALL AMOUNT OF CLEAR YELLOW URINE, PT BRIEF WAS HEAVY WITH YELLOW URINE. PT WAS CLEANED WITH SOAP AND WATER THEN CLEAN BRIEF. PT BED WAS ADJUSTED FOR COMFORT, LOWEST POSITIN, LOCKED AND ALARM ON. ZERO S/S OF ACUTE DISTRESS NOTED, PT WILL CONTINUE TO BE MONITOR PER [facility] PROTOCOL.
[2020-12-19 09:06] VITALS: BP 120/69
--- NOTE | 2020-12-19 12:39 | NUR ---
Alert and orientated to person this AM. Yelling and attempting to hit and kick with cares. Attempting to dress himself. Making inappropriate comments to staff. Resistive to am meds but took crushed in yogurt on 3rd approach. Took 1100 med without difficulty. Calm while eating breakfast and was quiet t/o AM. Yelling after lunch. Breath sounds clear. Reg HR auscultated. Color pink with brisk capillary refill and palpable peripheral pulses. Minimal edema to lower extremities. Saturated brief this AM of yellow urine. Active bowel sounds over soft, rounded abdomen. Attempts to stand and take a few steps. Currently in day room sitting in WC. No s/o distress.
--- NOTE | 2020-12-19 13:51 | NUR ---
MIHAI and Dr. Garcia participated in a family meeting by phone with Martell monaco Libertad Shashi, . Diagnosis and Medications were discussed. Dr. Garcia gave a recommendation for 24 hr supervision for the Pt. The family stated the Pt's current placement [facility] will be opening a memory care unit soon. The family also informed they have hired a 1 on 1 to be with the Pt from 7am to 7pm. However the Pt will not have supervision after 7pm. MIHAI made a suggestion of respite. The family stated they would look into this option. Family will call MIHAI back concerning repite with [facility] of [facility]. MIHAI will continue to follow
[2020-12-19 20:46] VITALS: BP 133/96
--- NOTE | 2020-12-20 05:42 | NUR ---
12-19-20 CARE TRANSFERRRED 1900 OBSERVED PT SITTING IN W/CHAIR IN DINING ROOM. LATER PT AAOX1, VSS, RR EVEN AND NONLABORED ON RA, PT PRESENTED IRRITABLE BUT COOPERATIVE. LATER PT REFUSED MEDICATION AND WAS SERVELY AGITATED GETTING UP AND TRYING TO WALK WHEN TRYING TO ASSIST PT STARTED HITTING STAFF. HCP Julia THAKUR WAS CONTACTED AND ORDERS RECEIVED FOR IM. LATER PT WAS RESTING WITH EYES CLOSED. LATER ASSIST PT TO BEDSIDE COMMODE AND PT WAS PLESANT AND COOPERATIVE. ZERO S/S OF ACUTE DISTRESS NOTED, PT WILL CONTINUE TO BE MONITOR PER [facility] PROTOCOL.
[2020-12-20 09:13] VITALS: BP 125/63
[2020-12-20 09:49] VITALS: BP 125/63
--- NOTE | 2020-12-20 09:52 | NUR ---
PATIENT CARE ASSUMED AT 0700 - AT THIS TIME PATIENT IN HIS ROOM. ASSISTED BY STAFF TO DINING [place] FOR BREAKFAST. PATIENT HAD FALL LAST EVENING BUT NO INJURIES REPORTED. HAS BEEN CALM AND AGREEABLE WITH STAFF - QUIET - ALERT TO SELF - TOOK MEDICATIONS CRUSHED IN [place] PUDDING WITHOUT INCIDENCE. AMBULATES WITH WALKER BUT VERY HIGH FALL RISK, IMPULSIVE WILL GET UP WITHOUT IT. CLOSE MONITORING HAS BEEN IMPLEMENTED FOR SAFETY OF PATIENT. ATE MORE THAN 50 PERCENT OF HIS BREAKFAST INDEPENDENTLY.
--- NOTE | 2020-12-20 16:51 | NUR ---
MIHAI sent a referral to [facility]. Pt was denied. MIHAI provided a list of other facilities to the family. MIHAI will continue to follow
[2020-12-20 19:12] VITALS: BP 104/56
[2020-12-20 21:30] VITALS: BP 122/64
--- NOTE | 2020-12-21 06:11 | NUR ---
12-20-20 CARE TRANSFERRED 1900 OBSERVED PT SITTING AT TABLE IN DAY ROOM. LATER PT AAOX1, RECEIVED REPORT IMPRESS ASSOCIATE, JOSÉ LUIS B/P TAKEN 122/64, P 96, 18 RR EVEN AND NONLABORED ON RA. PT DENIES SI/HI AND PAIN. PT IS PLESANTLY CONFUSED AND HAS BEEN CALM AND COOPERATIVE. PT WILL COTNINUE TO BE MONITOR PER [facility] PROTOCOL.
[2020-12-21 08:00] VITALS: BP 137/80
--- NOTE | 2020-12-21 14:07 | NUR ---
Alert and orientated to name only. Calm and cooperative. Transfers to toilet with one person assist. Denies SI/HI. Self propelling WC around unit. Breath sounds clear. Reg HR auscultated. Color pink with brisk capillary refill and palpable peripheral pulses. Minimal edema in lower extremities. Continent of yellow urine and medium formed soft, brown stool per toilet. Active bowel sounds over soft, rounded abdomen. Currently laying in bed without s/o distress.
--- NOTE | 2020-12-21 14:13 | NUR ---
RT Progress Note- Edilberto has been present in most recreation therapy groups since his admission. He particularly responds well and appears to brighten when music is played or he is participating in exercise groups. Edilberto has displayed mild irritation, particularly in the mornings, but has not been combative or verbally abusive to RT team. FAST FOOD DELIVERY DRIVER will continue to encourage pts participation and progress towards goals.
[2020-12-21 19:30] VITALS: BP 96/60
[2020-12-21 20:35] VITALS: BP 96/60
[2020-12-21 20:45] VITALS: BP 96/60
--- NOTE | 2020-12-22 03:26 | NUR ---
PATINET CARE WAS RESUMED AT 1900. HE IS ABLE TO VERBALIZE NEEDS. MAX ASSIST WITH CARE AND HE AMBULATES WITH WHEELCHAIR. BS ACTIVE X4 QUADS. ABD SOFT NONE TENDER.TOOK HIS MED WHOLE PT REQUESTED TO GO TO BED EARLIER.NO BEHAVOUR NOTED. HE IS ASSITED WITH JOSE CARE AND TRANSFERS TO BATHROOM AND BED SIDE COMMODE. BED IS LOW, LOCK, ALARMED AND YELLOW SOCK AND TOP ON. Q 12 MINUTES CHECK IS ONGOING. PT IS CONFUSED AND DOES NOT FOLLOW PROPER DIRECTION. CONTINUE CARE AND MONITOR.
[2020-12-22 08:40] VITALS: BP 115/65
--- NOTE | 2020-12-22 09:07 | NUR ---
Nutrition: at follow up, intake 75-100% most meals. No new metabolic labs since last week. Meds reviewed. No new wt since admit. Continues at low nutrition risk. Recommend obtain current wt.
[2020-12-22 09:33] VITALS: BP 115/65
--- NOTE | 2020-12-22 11:37 | NUR ---
1137 RESUMMED CARE FROM OVERNIGHT SHIFT THIS AM, PATIENT IN DAY ROOM SITTING QUIET IN WC. PATIENT ATE BREAKFAST TOOK MEDICATION WITHOUT INCIDENCE. PATIENT UNABLE TO TELL ME ABOUT SI/HI/AH/VH AT PRESENT DUE TO COGNITION DO. PATIENTS ABDOMEN SOFT BOWEL SOUNDS PRESENT PATIENTS LUNGS CLEAR. PATIENT SAT IN GROUP LISTENING TO TRIVIA QUESTIONS. PATIENT DID NOT DISPLAY ANY BEHAVIORS THIS SHIFT. WILL CONTINUE TO MONITOR PATIENT FOR SAFETY AND BEHAVIORS.
--- NOTE | 2020-12-22 16:14 | NUR ---
SW sent a referral to [facility]. Pt has an inperson assessment with the facility on 12/26/2020 @ 3285.
[2020-12-22 19:14] VITALS: BP 124/103
[2020-12-22 19:29] VITALS: BP 94/56
--- NOTE | 2020-12-22 21:32 | NUR ---
ASSUMED CARE AT 1900, NO S/S OF DISTRESS OR DISCOMFORT. TOOK MEDS WHOLE WITHOUT DIFFICULTY. A&OX SELF. CURRENTLY LYING IN BED. WILL CONTINUE TO MONITOR.
[2020-12-23 09:57] VITALS: BP 117/72
--- NOTE | 2020-12-23 11:52 | NUR ---
Alert and orientated to name only. Calm, cooperative and compliant. [place] self around unit in , able to stand with assistance. Denies SI/HI. Breath sounds clear. Reg HR auscultated. Color pink with brisk capillary refill and palpable peripheral pulses. +1 edema in lower extremities. Continent of yellow urine. Active bowel sounds over soft, rounded abdomen. Able to stand and assist with transfer this AM.
[2020-12-23 20:07] VITALS: BP 111/60
--- NOTE | 2020-12-23 21:12 | NUR ---
RESUMED PATIENT CARE AT 1900, SITTING IN DAY AREA AND INTERACTING WITH OTHER PATIENTS. PATIENT A&OX SELF. TOOK MEDS CRUSHED IN PUDDING WITHOUT DIFFICULTY. REQUIRES SOME ASSISTANCE WITH TOILETING, THOUGH IS IRRITABLE AT TIMES. WILL MONITOR.
[2020-12-24 07:09] LABS: ABSOLUTE NEUTROPHILS 2.9 thou/uL (1.4-8.2); BASOPHILS 0.8 % (0.0-2.0); EOSINOPHILS 4.3 % (0.0-3.0); HEMATOCRIT 39.9 % (42.0-52.0); HEMOGLOBIN 12.9 gm/dL (14.0-18.0); LYMPHOCYTES 26.8 % (24.0-44.0); MCH 28.4 pg (26.0-34.0); MCHC 32.3 g/dL (28.0-37.0); MCV 87.8 fL (80.0-100.0); MONOCYTES 8.4 % (1.0-8.0); PLATELET COUNT 207 thou/uL (150-400); POLYS 59.7 % (36.0-66.0); RBC 4.55 mil/uL (4.50-6.00); RDW 14.5 % (10.5-14.5); WBC 4.9 thou/uL (4.0-11.0)
[2020-12-24 07:30] LABS: ALBUMIN 3.7 g/dL (3.4-5.0); ANION GAP 5 mmol/L (7-16); BUN 33 mg/dL (7-18); CALCIUM 8.6 mg/dL (8.5-10.1); CHLORIDE 106 mmol/L (98-107); CO2 32 mmol/L (21-32); CREATININE 1.2 mg/dL (0.7-1.3); DIRECT BILIRUBIN < 0.1 mg/dL (<0.1-0.2); GLUCOSE 90 mg/dL (74-106); SGOT 23 U/L (15-37); SGPT 19 U/L (16-63); SODIUM 143 mmol/L (136-145); TOTAL BILIRUBIN 0.3 mg/dL (0.2-1.0); TOTAL PROTEIN 7.4 g/dL (6.4-8.2)
[2020-12-24 08:55] VITALS: BP 101/52
[2020-12-24 09:26] VITALS: BP 101/52
--- NOTE | 2020-12-24 10:30 | NUR ---
1030 RESUMMED CARE FROM OVERNIGHT SHIFT THIS AM, PATIENT IN DAY ROOM SITTING IN WC. PATIENT ALERT ORIENTED TO SELF ONLY WHEN YOU ASK PATIENT QUESTIONS IS DOES MAKE SENSE. PATIENT DENIES SI/HI/AH/VH AT PRESENT PATIENT DENIES ANY PAIN AT PRESENT. PATIENTS ABDOMEN SOFT BOWEL SOUNDS PRESENT PATIENTS LUNGS CLEAR. PATIENT SITS IN GROUPS SOME PARTICIPATES AT TIMES PATIENT HAS NOT DISPLAYED ANY BEHAVIORS. WILL CONTINUE TO MONITOR PATIENT FOR SAFETY AND BEHAVIORS.
[2020-12-24 19:46] VITALS: BP 120/62
--- NOTE | 2020-12-24 21:41 | NUR ---
PATIENT CARE RESUMED AT 1900. NO S/S OF DISTRESS OR DISCOMFORT. PLEASANT AND COOPERATIVE. TOOK MEDS CRUSHED IN PUDDING WITHOUT DIFFICULTY. USES W/C FOR AMBULATION. WILL CONTINUE TO MONITOR.
[2020-12-25 08:53] VITALS: BP 113/61
[2020-12-25 10:46] VITALS: BP 113/61
--- NOTE | 2020-12-25 12:24 | NUR ---
1220 RESUMMED CARE FROM OVERNIGHT SHIFT THIS AM, PATIENT IN DAY ROOM SITTING QUIET. PATIENT ATE BREAKFAST TOOK MEDICATION WITHOUT INCIDENCE PATIENT DENIES SI/HI/AH/VH AT PRESENT. PATIENTS ABDOMEN SOFT BOWEL SOUNDS PRESENT PATIENTS LUNGS CLEAR. PATIENT CALM COOPERATIVE PATIENT HAS NOT DISPLAYED ANY BEHAVIORS. PATIENT ORIENTED TO SELF ONLY WILL CONTINUE TO MONITOR PATIENT FOR SAFETY AND BEHAVIORS.
[2020-12-25 19:15] VITALS: BP 135/75
[2020-12-25 20:15] VITALS: BP 135/75
--- NOTE | 2020-12-26 00:44 | NUR ---
PATIENT SAT UP IN DINING ROOM THIS EVENING IN ELISA CHAIR UNTIL HE ASKED TO GO TO BED AROUND 2200. HE HAS BEEN PLEASANT AND COOPERATIVE. HE IS CONTINENT SO FAR TONIGHT. HE TRANSFERS FROM CHAIR TO TOILET AND BED WITH ASSIST X 2. HE USES URINAL AT NIGHT WITH ASSIST. 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 PATIENT IS A/0X1. HE TOOK HIS HS MEDS WHOLE WITH WATER. HE DENIES PAIN. NO SIGNS OF SI/HI/AVH. BED IN LOW POSITION AND BED ALARM IS ON. ROUTINE ROUNDS TO ASSESS SAFETY AND STATUS OF PATIENT.
[2020-12-26 09:13] VITALS: BP 102/75
[2020-12-26 09:48] VITALS: BP 102/75
--- NOTE | 2020-12-26 11:30 | NUR ---
1130 RESUMMED CARE FROM OVERNIGHT SHIFT THIS AM, PATIENT IN DAY ROOM SITTING QUIET IN WC. PATIENT ATE BREAKFAST TOOK MEDICATION WITHOUT INCIDENCE, PATIENT DENIES SI/HI/AH/VH AT PRESENT PATIENT IS CALM COOPERATIVE ALERT ORIENTED TO SELF ONLY. PATIENT DOES LET US KNOW ABOUT USING THE BATHROOM AND IF HE WANTS TO LIE DOWN. PATIENTS ABDOMEN SOFT BOWEL SOUNDS PRESENT PATIENTS LUNGS CLEAR. PATIENT HAS NOT DISPLAYED ANY BEHAVIORS THIS SHIFT; PATIENT LIKE TO WALK THE HALLS. WILL CONTINUE TO MONITOR PATIENT FOR SAFETY AND BEHAVIORS.
--- NOTE | 2020-12-26 12:33 | NUR ---
[facility] from [facility] completed an assessment in person with the Pt. [facility] informed [facility] would be able to accept the Pt.
--- NOTE | 2020-12-26 17:09 | NUR ---
MIHAI called [facility] concerning discharge to [facility]. [facility] is in agreement with the placement. MIHAI informed Pt would be discharged 12/27/2020 @ 1510. Pt will be transported by [facility]. [facility] had no other questions or concerns.
[2020-12-26 19:14] VITALS: BP 111/60
[2020-12-26 20:20] VITALS: BP 111/60
--- NOTE | 2020-12-27 00:41 | NUR ---
PATIENT WAS IN BED WHEN ASSUMED CARE OF PATIENT AT 1900. PATIENT HAS BEEN CALM AND COOPERATIVE FOR THE MOST PART BUT BECAME IRRITABLE AT ONE POINT WHEN HE NEEDED TO USE THE RESTROOM. PATIENT DOES NOT TRANSFER EASILY AND UNSTEADY ON FEET. TOOK ASSIST X 3 TO GET TO BSC. PATIENT WAS ASSISTED BACK TO BED. HE REFUSED A SNACK TONIGHT. PATIENT IS IMPULSIVE AND KEEPS HIS LEGS ACTIVELY MOVING AND DOES THE BICYCLE WITH THEM OFF AND ON. PATIENT CALLS FOR HELP WHEN NEEDS TO VOID. PATIENT DENIES PAIN, SI/HI/AVH. HE IS A/0X1. CONTINUING TO MONITOR. BED IN LOW POSITION AND BED ALARM IS ON. ROUTINE ROUNDS TO ASSESS SAFETY AND STATUS OF PATIENT.
[2020-12-27] MEDS ORDERED: GABAPENTIN 100100 MG PO (09:36)
[2020-12-27] MEDS ORDERED: MIRTAZAPINE7.5 MG PO (09:38)
[2020-12-27] MEDS ORDERED: ZOLOFT 50 MG TA50 MG PO (09:38)
[2020-12-27] MEDS ORDERED: SEROQUEL 50 MG50 MG PO (09:39)
[2020-12-27] MEDS ORDERED: NAMENDA 5 MG TAB5 M1 PO (09:40)
[2020-12-27] MEDS ORDERED: VITAMIN D3125 MC1 PO (09:40)
--- NOTE | 2020-12-27 10:05 | NUR ---
PATIENT HAS BEEN UP IN WHEELCHAIR, AND OUT IN DAYROOM. PATIENT IS ALERT AND ORIENTED X 1-2, FORGETFUL, AND CONFUSED AT TIMES, BUT KNOWS WHEN TO USE THE BATHROOM. PATIENT REQUIRES MAX ASSIST OF STAFF TO COMPLETE ADL. PATIENT TOOK ALL MEDICATION WHOLE WITHOUT DIFFICULTY THIS MORNING, HE IS EATING MEALS, AND DRINKING FLIUD WELL, ABLE TO FEED SELF. PATIENT DENIES SUICIDAL/HOMICIDAL IDEATION. HE IS NOT ABLE TO APPROPRIATELY RESPOND TO FURTHER ASSESSMENT QUESTIONS DUE TO COGNITIVE IMPAIRMENT. AFFECT IS FLAT/BLUNTED, MOOD IS EUTHYMIC. NO AGGRESSION OR AGITATION NOTED AT THIS TIME. NO SIGN OF ACUTE DISTRESS NOTED AT THIS TIMES, WILL MONITOR FOR SAFETY.
[2020-12-27 10:50] VITALS: BP 111/54
--- NOTE | 2020-12-27 15:40 | NUR ---
MIHAI emailed discharge documents to [facility] [email or web address]. A copy of the email was placed in the chart.
--- NOTE | 2020-12-29 22:52 | D ---
[facility] [address] DISCHARGE SUMMARY Name: MARK HAND Room #: 519B-B DIS IN M.R.#: [id number] Admission: 12/14/20 Attend Phys: Waldo Queen DO Discharge: 12/27/20 Date of : 35 Report #: [id number] THIS REPORT FOR: cc: Yarelis Glaser MD, Lou K. MD Kerstein, Andrew H. DO ~ DOC #: [id number] WALDO Queen DO DATE OF SERVICE: 12/27/2020 INPATIENT PSYCHIATRIC DISCHARGE SUMMARY ATTENDING PSYCHIATRIST: Waldo Queen DO SENIOR HEALTH CONSULTANT: Dr. Severo Decker at the time of discharge. 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 ADDITIONAL MORBIDITIES; hypernatremia and elevated BUN; hypertension. The patient is discharging to [facility]. Psychiatric and medical care to be performed by receiving facility. DISCHARGE MEDICATIONS: 1. Carbidopa/levodopa 25/100 one tablet at 0700, 1100, 1400, 1900 hours. Carbidopa/levodopa is for Parkinson's disease. 2. Neurontin 100 mg oral 3 times a day for neuropathy. 3. Mirtazapine 22.5 mg oral. 4. Sertraline 50 mg oral daily for depression. 5. Seroquel 75 mg oral 3 times a day for impulse control and psychosis. 6. Namenda 10 mg oral twice daily for cognitive enhancement. 7. Vitamin D3 5000 International Units oral daily. LABORATORY DATA: Significant laboratories this admission from 12/24/2020, H and H 12.9 and 39.9, white count 4.9, platelet count 207. Chemistries: Sodium 143, potassium 4.0, chloride 106, bicarbonate 32, BUN 32, creatinine 1.2, estimated GFR 58, glucose is 90, AST 23, ALT 19, alkaline phosphatase 92, total protein 7.4, albumin 3.7. Vitamin D normal at 50.4. B12 level borderline of 411. Folate 12.6. TSH 2.120. COVID-19 serology was negative on 12/14/2020. Urinalysis grossly negative on 12/14/2020. REASON FOR ADMISSION: An 85-year-old male sent out from his nursing facility. The patient refused to dress, became agitated at the staff, throwing things, did not want to leave the room, was making suicidal references. [address] [address] DISCHARGE SUMMARY Name: MARK HAND Room #: 519B-B [facility] IN M.R.#: [id number] Admission: 12/14/20 Attend Phys: Waldo Queen, Discharge: 12/27/20 Date of : 35 Report #: [id number] HOSPITAL COURSE: The patient was admitted to Geriatric Psychiatry Unit. The patient was known to me from a remote admission. The patient was started on Seroquel, given the Parkinson's disease. Also, I initially started mirtazapine at 15 mg titrated to 22.5, due to sedation. Over the course of hospitalization, the patient's mood improved. His behavior improved. He does have significant degree of disability. I did check with the daughter. He does have a deep brain stimulators implanted, however, they are nonfunctional. That being said, his Parkinson's disease is not as extreme as I might expect for someone who has had DBS. In any event, probably maximum benefit he had from hospitalization right at discharge. PHYSICAL EXAMINATION: VITAL SIGNS: At discharge, temperature 36.0, pulse 57, respirations 19, BP 111/54, O2 sat 94%. MUSCULOSKELETAL: He can ambulate with moderate assist. MENTAL STATUS EXAMINATION: This is a well-developed, ill-appearing male. Attention limited. Concentration limited. Speech slow, normal volume. Thought process linear. Very limited thought content with a poverty of thought. No suicidal ideation or homicidal ideation. No auditory, visual, or tactile hallucinations. Memory known to be impaired. Insight is impaired, judgment is impaired. Fund of knowledge below average. PROGNOSIS: Prognosis for this patient is guarded to poor given age of 85 and neurodegenerative disorder. WALDO Queen DO AHK/MUK/ANI <ELECTRONICALLY SIGNED> By: Waldo Queen DO 12/29/20 2252 [id number] Waldo Queen DO /nt
== END 2020-12-27 13:45 | DRG 57 ==
LOC: SBH 17:10
PROVIDERS: Internal Medicine; ADMIT Psychiatry & Neurology Psychiatry; ATTEND Psychiatry & Neurology Psychiatry
DX: G30.9 Alzheimer's disease, unspecified (principal); F01.51 Vascular dementia, unspecified severity, with behavioral disturbance; F02.81 Dementia in other diseases classified elsewhere, unspecified severity, with behavioral disturbance; E87.0 Hyperosmolality and hypernatremia; F33.2 Major depressive disorder, recurrent severe without psychotic features; G20 Parkinson's disease; K21.9 Gastro-esophageal reflux disease without esophagitis; G47.00 Insomnia, unspecified; D64.9 Anemia, unspecified; I10 Essential (primary) hypertension; E66.9 Obesity, unspecified; E03.9 Hypothyroidism, unspecified; N40.0 Benign prostatic hyperplasia without lower urinary tract symptoms; Z88.8 Allergy status to other drugs, medicaments and biological substances; Z68.31 Body mass index [BMI] 31.0-31.9, adult
CPT/HCPCS: 10880

== ENCOUNTER 2021-03-05 19:44 | Inpatient (IN) | payer OTHER ==
[~2021-03-05] VITALS: Ht 177.8 cm; Wt 90.7 kg
--- NOTE | ~2021-03-05 | EMS ---
[facility] [address] [place] [address] EMS Patient Care Report Name: MARK HAND Room #: REG FILOMENA Sears#: [id number] Admission: 03/05/21 Attend Phys: Discharge: Date of : 35 Report #: [id number] THIS REPORT FOR: //name// Report Transmitted: 03/05/2021 20:10 EMS Care Summary [facility] MED-ACT Incident [id number] @ 03/05/2021 19:06 Incident Location [address] [place] [address] Patient MARK HAND Male, 86 Years 1935 Patient Address [address] [place] [address] Patient History Alzheimer's,Parkinson's Disease, Patient Allergies No known allergies, Patient Medications Gabapentin, Carbidopa, Zofran, Sertraline, Mirtazapine, Chief Complaint resident has wound and fever Disposition Transported No Lights/[place] Dispatch Reason Breathing Problem Transported To [facility] Narrative Dispatched to the above assisted for a reported breathing difficulty. Arrived on scene to find patient lying supine in bed, alert but not able to [facility] [address] [place] [address] EMS Patient Care Report Name: MARK HAND Room #: KG Sears#: [id number] Admission: 03/05/21 Attend Phys: Discharge: Date of : 35 Report #: [id number] communicate or follow commands, no obvious respiratory distress, attended to by [place] staff member. [place] staff report that the pt. has a wound on his chest that seems to be getting more infected despite wound care daily and developed a fever today. Staff that was on scene did not know the cause of the wound. Staff report pt. has Parkinson's and dementia, appears to be at his baseline but possibly more lethargic. Staff unsure of when the pt. began to seem more lethargic or last seen normal. Staff requested pt. be taken to [facility] for evaluation. [place] staff unsure if pt. has been vaccinated for COVID-19 and nothing on face sheet regarding vaccination status. Assessment revealed wound that was dressed with sterile dressing and labeled with initials and today's date. Pt. was hot to the touch including lower legs, however both feet were very cold. Cellulitis on both lower legs visible. Obtained VS, temp, bG, 3 Ld ECG. Moved pt. to cot with lateral sheet pull, secured with straps and moved cot to ambulance without incident. Biocom to ED, bedside report and transfer of care to ED staff at [facility]. Initial Vitals @19:37P: 102,BP: 114/76,SpO2: 92, @19:34P: 99,SpO2: 92, @19:29P: 99,R: 16,BP: 104/49,GCS: 13,Temp: 101.1F,Glucose: 151,SpO2: 87,Revised Trauma: 12, Impression Sepsis/Septicemia Procedures @PTASurgical Mask on Patient Timeline OPEN HEARTH DOOR LINER,Surgical Mask on Patient, 19:03,Call Received 19:03,Psap Call 19:06,Dispatched 19:08,En Route 19:17,On Scene 19:19,At Patient 19:28,Depart Scene 19:29,BP: 104/49 M,PULSE: 99,RR: 16 R,SPO2: 87 Ox,ETCO2: ,B,PAIN: ,GCS: 13, 19:34,BP: / M,PULSE: 99,RR: R,SPO2: 92 Ox,ETCO2: ,BG: ,PAIN: ,GCS: , 19:37,BP: 114/76 M,PULSE: 102,RR: R,SPO2: 92 Ox,ETCO2: ,BG: ,PAIN: ,GCS: , 19:38,At Destination 20:05,Call Closed [facility] [address] [place] [address] EMS Patient Care Report Name: MARK HAND Room #: REG FILOMENA Sears#: [id number] Admission: 03/05/21 Attend Phys: Discharge: Date of : 35 Report #: [id number] Disclaimer v1.1 Copyright 2020 [employer] This EMS Care Summary contains data elements from the applicable legal record (which may be displayed differently). It is designed to provide pertinent information for the following purposes: continuity of care, clinical quality, and state data reporting. The complete legal record is available to ED staff and administrators of the receiving hospital in [email or web address]'s Patient Tracker. All data is provided "as is."
--- NOTE | ~2021-03-05 | HC ---
[facility] [place] [address] [place] [address] CONSULTATION Name: MARK HAND Room #: 3- ADM IN MMaeve.#: [id number] Admission: 03/05/21 Attend Phys: Francisco Minaya MD Discharge: Date of : 35 Report #: [id number] THIS REPORT FOR: cc: FAM - Family physician unknown FAM - Family physician unknown Alphonso Menendez MD ~ DATE OF SERVICE: 03/06/2021 CHIEF COMPLAINT: Sternal wound. HISTORY OF PRESENT ILLNESS: This is an 86-year-old male patient with significant dementia and Parkinson's disease, who was admitted from the Emergency Department with possible sepsis, was noted to have a sternal wound. The etiology is unclear, but there has been some drainage present and I have been asked to see him with regard to wound care. The patient cannot provide any information about himself and has significantly advanced dementia. PAST MEDICAL HISTORY: Positive for Parkinson's, has history of hallucinations, depression, dementia, insomnia, enlarged prostate. He has a left chest implanted brain stimulator. SOCIAL HISTORY: Unknown. FAMILY HISTORY: Unknown. REVIEW OF SYSTEMS: Not obtainable due to the patient's advanced dementia. ALLERGIES: TRAZODONE. MEDICATIONS: Include Carbidopa/levodopa, Neurontin, Zoloft, Namenda, vitamin D3, quetiapine, cyanocobalamin, mirtazapine, melatonin. PHYSICAL EXAMINATION: VITAL SIGNS: At this time include temperature 36.6, pulse 86, respiratory rate 18, blood pressure 120/69. GENERAL: This is a chronically ill-appearing male patient who is a little bit combative. HEENT: Normocephalic. Nose and throat clear. NECK: Supple. LUNGS: Clear. HEART: Regular rhythm. CHEST: Stable, nontender. There is a small ulceration at the distal or caudal portion of the sternum. There is a scant amount of drainage. I do not feel any fluctuance or obvious fluid collection. ABDOMEN: Soft and nontender. Gluteal sacral region demonstrates mild blanchable erythema, no other breakdown noted. [facility] [address] [place] [address] CONSULTATION Name: MARK HAND Room #: 443- ADM IN M.R.#: [id number] Admission: 03/05/21 Attend Phys: Francisco Minaya MD Discharge: Date of : 35 Report #: [id number] EXTREMITIES: Reveal the heels are intact. LABORATORY DATA: Include white blood cell count 5.1 with a hemoglobin of 11.2, hematocrit of 33.6. Sed rate of 19. Sodium 136, potassium 4.2, chloride 103, CO2 of 24, BUN 33, creatinine 1.7, glucose 118, albumin is 3.7. CLINICAL IMPRESSION: 1. Sternal wound. Etiology is unclear. This does not appear to be overtly infected at this time. 2. Mild gluteal erythema, but no breakdown. 3. Sepsis. 4. Acute kidney injury. 5. Dementia. 6. Toxic metabolic encephalopathy. 7. Parkinson's disease. RECOMMENDATIONS: At this point in time, we will recommend the on the chest to be cleanse daily and it could be open to air or border foam if more amenable to the patient not picking at the area. He will need to be turned and repositioned in bed, will need ongoing aggressive nutritional support. Antibiotics per infectious disease. I appreciate being asked to see him in consultation. By: [id number] Alphonso Menendez MD /nt
[~2021-03-05 19:44] MED LIST changes: +GABAPENTIN 100100 MG PO; +MIRTAZAPINE7.5 MG PO; +SEROQUEL 50 MG50 MG PO; +VITAMIN D3125 MC1 PO; +ZOLOFT 50 MG TA50 MG PO
[2021-03-05 19:50] VITALS: BP 104/53
[2021-03-05 20:31] LABS: HEMATOCRIT 37.5 % (42.0-52.0); HEMOGLOBIN 12.1 gm/dL (14.0-18.0); MCHC 32.2 g/dL (28.0-37.0); MCV 86.9 fL (80.0-100.0); PLATELET COUNT 187 thou/uL (150-400); RBC 4.32 mil/uL (4.50-6.00); RDW 14.6 % (10.5-14.5); WBC 6.5 thou/uL (4.0-11.0)
[2021-03-05 20:35] LABS: CALCIUM 8.7 mg/dL (8.5-10.1); CREATININE 2.1 mg/dL (0.7-1.3); POTASSIUM 4.5 mmol/L (3.5-5.1)
[2021-03-05 20:41] LABS: ALBUMIN 3.7 g/dL (3.4-5.0); TOTAL BILIRUBIN 0.4 mg/dL (0.2-1.0); TOTAL PROTEIN 7.5 g/dL (6.4-8.2)
--- NOTE | 2021-03-05 20:46 | NUR ---
ISA ([facility]) [phone] PER FAMILY PT IS FULLY VACCINATED.
[2021-03-05 21:02] LABS: ABSOLUTE NEUTROPHILS 4.9 thou/uL (1.4-8.2)
[2021-03-05] MEDS ORDERED: MELATONIN5 MG PO (22:02)
[2021-03-05] MEDS ORDERED: REMERON30 MG PO (22:03)
[2021-03-05] MEDS ORDERED: SEROQUEL 100 M100 M1 PO (22:04)
[2021-03-05] MEDS ORDERED: VITAMIN B-121000 MC2 PO (22:04)
[2021-03-05 23:43] LABS: URINE BILIRUBIN NEGATIVE (Negative); URINE BLOOD 3+ (Negative); URINE CLARITY CLEAR; URINE COLOR YELLOW; URINE GLUCOSE-RANDOM* NEGATIVE (Negative); URINE KETONES NEGATIVE (Negative); URINE LEUKOCYTES-REFLEX NEGATIVE (Negative); URINE NITRITE-REFLEX NEGATIVE (Negative); URINE PROTEIN (DIPSTICK) TRACE (Negative); URINE SPECIFIC GRAVITY >= 1.030 (1.005-1.035); URINE UROBILINOGEN 0.2 E.U./dl (0.2-1.0)
[2021-03-06 00:55] LABS: BACTERIA-REFLEX 1-9 Few /HPF (None Seen); CASTS None Seen /LPF (None Seen); CRYSTALS None Seen /LPF (None Seen); MUCUS 0-3 Light strn/LPF (None Seen); SQUAMOUS 0-3 Few /LPF (0-3); URINE WBC-REFLEX 0-5 Rare /HPF (0-5)
[2021-03-06 05:50] LABS: HEMATOCRIT 33.6 % (42.0-52.0); HEMOGLOBIN 11.2 gm/dL (14.0-18.0); MCH 28.6 pg (26.0-34.0); MCHC 33.2 g/dL (28.0-37.0); MCV 86.1 fL (80.0-100.0); RBC 3.91 mil/uL (4.50-6.00); RDW 14.5 % (10.5-14.5); WBC 5.1 thou/uL (4.0-11.0)
[2021-03-06 06:14] LABS: CALCIUM 7.8 mg/dL (8.5-10.1); CREATININE 1.7 mg/dL (0.7-1.3); POTASSIUM 4.2 mmol/L (3.5-5.1)
[2021-03-06 06:51] VITALS: BP 124/73
[2021-03-06 08:00] VITALS: BP 128/69
--- NOTE | 2021-03-06 11:33 | NUR ---
ASSUMED PT CARE AT 0800 FROM ED. CALLED PT FAMILY AND INFORMED THAT PT IS HERE. PT IS AWAKE BUT CONFUSED AT TIMES. PT HAS IV SITE ON LFA. PT IS ON ROOM AIR. AWAITING FOR DR KATHARINA WITT ORDER. PT HAS BEEN NPO. PT IS INCONTINENT OF URINE. FINISHED ADMISSION. WILL CONTINUE TO MONITOR PT. FOLLOW POC.
--- NOTE | 2021-03-06 15:12 | NUR ---
PT ADMITTED RELATED TO FEVER, DEMENTIA, AND SEPSIS. CM REVIEWED CHART AND SPOKE WITH CARE TEAM. PT HAD BEEN ON SBHU HERE AT [facility] AND DISHCARGED TO [facility] 12/27/20. CM GOT PT'S DPOA PAPERWORK FROM [employer]. DPOA IS SON SEVERINO AND DTR IN LAW HANK. CM PLACED COPY IN CHART. CM CALLED AND SPOKE WITH HANK. SHE INDICATED THAT PT HAS BEEN AT [facility] SINCE DISCHARGE FROM HERE AND THAT HE HAD BEEN GETTING PT AND OT THROUGH [facility] PRIOR TO ADMISSION. PT HAD BEEN USING A WC AND A FWW TO ASSIST WITH MOBILITY NECKTIE OPERATOR POCKETS AND PIECES. DTR IN LAW INDICATED THAT PLAN WOULD BE FOR PT TO RETURN TO [facility] WITH [facility] ONCE MEDICALLY STABLE. CM TO REACH OUT TO FACILITY STAFF TO PROVIDE CLINICAL UPDATES. ID AND WC CONSULTED. CM FOLLOWING REGARDING DC PLANNING.
[2021-03-06 16:00] VITALS: BP 117/77
[2021-03-06 19:11] VITALS: BP 139/78
--- NOTE | 2021-03-07 03:07 | NUR ---
ASSESSED AT START OF SHIFT. PT RESTING IN BED. HX OF PARKINSON AND TREMORS NOTED.IV INTACT AND FLUIDS INFUSING. DR LUGO STOPPED BY TO SEE PT. STERNAL WOUND CULTURE COLLECTED AND SENT TO LAB. EVENING MEDS GIVEN CRUSHED IN APPLE SAUCE. PT INCONTINET OF BOWEL AND BLADDER. FALL PREC IN PLACE ANDF CALL LIGHT AT REACH WILL CONT TO MONITOR.
[2021-03-07 04:46] VITALS: BP 107/59
--- NOTE | 2021-03-07 11:23 | NUR ---
Case discussed with the care team. Cultures are pending and pt still on iv atb. Therapy evaling. Clinical updated faxed to the DON at [facility]. Pt can return to [facility] care unit if on po atb. Will need snf if he needs iv atb at dc. Will follow.
--- NOTE | 2021-03-07 12:13 | NUR ---
Assumed pt care this am. Pt is alert & oriented x1 to self only and confused. Pt has iv site on R wrist. Pt is on room air. Pt is incontinent of bowel and bladder. Last BM was today. Pt tolerated diet and medication well. Will continue to monitor pt. Follow POC.
[2021-03-07 13:47] LABS: CALCIUM 8.3 mg/dL (8.5-10.1); CREATININE 1.3 mg/dL (0.7-1.3); POTASSIUM 4.1 mmol/L (3.5-5.1)
[2021-03-07 16:23] VITALS: BP 146/113
[2021-03-07 20:00] VITALS: BP 123/63
--- NOTE | 2021-03-08 03:11 | NUR ---
ASSESSED AT START OF SHIFT. PT IN BED. IV INTACT AND FLUIDS INFUSING. PT CONFUSED. VOICES INCOHERENT WORDS. PT INCONTINENT. GETS SCHEDULED BREATHING TREATMENT. WHEEZING NOTED. FALL PREC IN PLACE AND FREQUENT ROUNDING DONE. WILL CONT TO MONITOR.
[2021-03-08 04:38] VITALS: BP 137/68
[2021-03-08 08:00] VITALS: BP 152/76
--- NOTE | 2021-03-08 13:02 | NUR ---
ASSUMED CARE OF PT AT 0700 THIS MORNING. PT HAS HX OF PARKINSONS AND DEMENTIA. PT CAN BE IMPULSIVE AND IS VERY CONFUSED AND ALERT ONLY BY NAME. ASSESSMENTS NOTED IN CHART AND OTHERWISE UNREMARKABLE. FALL PRECAUTION ARE IN PLACE. CALL LIGHT AND OTHER NEEDS ARE WITHIN REACH. MEDS AND TX GIVEN NEEDED AND SCHEDULED. WILL MONITOR AND NOTE ANY CHANGES.
--- NOTE | 2021-03-08 13:36 | NUR ---
ON-GOING ASSESSMENT: CM REVIEWED CHART. PT CONTINUES ON IV ANBX AND AWAITING FINAL RECOMMENDATIONS FROM ID IF PATIENT IS ABLE TO TRANSITION TO ORAL. CM SPOKE WITH BRIDGETTE AT [facility] WHO REPORTS THEY CAN ONLY ACCEPT PATIENT BACK TO ASSISTED LIVING IF HE IS ABLE TO TRANSITION TO ORAL ANBX. CM WILL CONTINUE TO FOLLOW TO ASSIST NEEDED.
[2021-03-08 19:35] VITALS: BP 130/74
--- NOTE | 2021-03-09 03:45 | NUR ---
ASSUMED CARE OF PT AT 1900. BEDSIDE REPORT RECIEVED. MARU ASSESSMENT COMPLETE. PT EXPERIECING CONFUSION, PROVIDED REORIENTATION, PT STILL CONTINUING TO EXPERIENCE CONFUSION AND HAVING TREMORS D/T PARKINSONS D/O. PT SOILED IN URINE AND DIARRHEA. COMPLETE BED CHANGE, LINEN CHANGE DONE. PT RECEIEVED PARTIAL BATH. JOSE CARE DONE. BARRIER CREAM APPLIED TO SACRUM AND GROIN. IVF RUNNING ORDERED. MEDS GIVEN CRUSHED ORDERED. PT HAS LESION ON MID CHEST, CHANGED BANDAGE D/T IT COMING OFF. BANDAGE CDI. REPOSITIONED PT FOR COMFORT. ENCOURAGED FLUIDS, HONEY THICKENED LIQUID. R FA PIV PATENT AND SECURE C TRANSPARENT DRSG AND PROTECTIVE WRAP. PT DENIES ANY OTHER NEEDS. PT READY FOR BED. ALL NEEDS MET, CALL LIGHT IN REACH
[2021-03-09 07:18] VITALS: BP 126/78
--- NOTE | 2021-03-09 08:15 | NUR ---
SENT A [employer]PT[employer] TEXT TO DR JAVIER AT 0724 REQUESTING THAT THE BRATHING TREATMENTS BE MADE PRN FOR SHORTNESS OF AIR/WHEEZING. HE IS CURRENTLY ON ROOM AIR AND CTA. HE IS ON BRAOD [employer] WHICH RENDER TREATMENTS UNNCECCESARY GIVEN HIS CURRENT CONDITION. THE TREATMENTS WERE CHANGED BASED ON VERBAL ORDER FROM DR JAVIER.
--- NOTE | 2021-03-09 12:54 | NUR ---
ASSUMED PT CARE AROUND 0710. PT A X O X O, CONFUSED.ON ROOM AIR. INCONTINENT OF BB, HAD BM 3 TIMES TODAY, PULL OUT HIS BRIEFS AND CLOTHES, LIES NAKED IN BED. PULLED IV OUT, RN TRIED 2 TIMES, PATIENT HAS TREMORS ON HAND. CALLED IV TEAM 2 TIMES, IV TEAM RESPONDED BACK AROUND 1215. PT IS DNR, ON PUREED DIET AND NECTAR THICK LIQUID. FALL PRECT IN PLACE. WILL CONT TO MONITOR.
--- NOTE | 2021-03-09 14:00 | NUR ---
ON-GOING ASSESSMENT: CM REVIEWED CHART AND SPOKE WITH ATTENDING WHO REPORTS HE WOULD LIKE PATIENT EVALUATED FOR 5N. 5N CONSULT WAS PLACED AND 5N LIASON IS AWARE. PT WILL BE EVALUATED FOR 5N AND WOULD NEED INSURANCE AUTH PRIOR TO ACCEPTING. CM WILL CONTINUE TO FOLLOW. CM SPOKE WITH SON WHO IS AGREEABLE WITH PLAN FOR 5N EVAL AND SUBMITTED FOR AUTH IF APPROPRIATE. CM LEFT VM WITH [facility] WHERE PATIENT IS FROM AND ALSO FAXED UPDATED CLINICAL. NO WEEKEND DISCHARGE ANTICIPATED.
--- NOTE | 2021-03-10 03:29 | NUR ---
ASSUMED CARE OF PT AT 1900. BEDSIDE REPORT RECIEVED. MARU ASSESSMENT COMPLETE. PT DISORIENTED AND CONFUSED. IS ALERT AND AWAKE BUT NOT ORIENTED. PROVIDED REOIRIENTATION FOR PT, WAS NOT RECEPTABLE. PT SOILED BED LINEN C URINE. ALL BED LINEN CHANGED, PT CLEANED, JOSE CARE DONE, BARRIER CREAM TO SACRUM AND GROIN. MEDS GIVEN ORDERED CRUSHED C APPLESAUCE. DURING DAY SHIFT PT PULLED OUT PIV THAT WAS JUST PLACED BY IV TEAM. CALLED ZAINAB SHEN NP AT 2014, PER ZAINAB TAFOYA FOR IVF TO NOT BE RUNNING D/T NO IV ACCESS AND UNABLE TO OBTAIN. PT WILL WAIT UNTIL TOMORROW FOR IV PLACEMENT AND REASSESS NEED FOR RESTRAINTS. DENIES ANY PAIN AT THIS TIME. ORAL CARE PROVIDED. ASSISTING PT TO DRINK THICKENED LIQUIDS. ALL NEEDS MET, CALL LIGHT IN REACH
[2021-03-10 07:15] VITALS: BP 131/97
[2021-03-10] MEDS ORDERED: LEVOFLOXACIN500 MG PO (09:28)
--- NOTE | 2021-03-10 10:13 | NUR ---
ASSUMED PT CARE THIS AM. PT HAS NO IV. PT IS ALERT & ORIENTED TO SELF ONLY AND CONFUSED. PT IS ON ROOM AIR. PT IS INCONTINENT OF BLADDER AND BOWEL. PT TOLERATED DIET AND PO MED THIS AM. CALLED FACILITY IF THEY CAN ACCEPT PT TODAY. BUT UNABLE TO PROVIDE TRANSPORTATION. AWAITING FOR HOUSE SUP REGARDING TRANSPORTATION. WILL CONTINUE TO MONITOR PT. FOLLOW POC.
--- NOTE | 2021-03-10 11:56 | NUR ---
PATIENT TO GO BACK TO [facility] TODAY WITH [facility] AT 1300. [facility]
== END 2021-03-10 13:04 | DRG 871 ==
LOC: ER 19:44 → 4S 22:18 → EROBS 22:18 → 4S 03-06 07:21
PROVIDERS: Nurse Practitioner; Nurse Practitioner Family; ADMIT Internal Medicine; ATTEND Internal Medicine
DX: A41.9 Sepsis, unspecified organism (principal); G92 Toxic encephalopathy; N17.0 Acute kidney failure with tubular necrosis; J18.9 Pneumonia, unspecified organism; S21.109A Unspecified open wound of unspecified front wall of thorax without penetration into thoracic cavity, initial encounter; L02.213 Cutaneous abscess of chest wall; N18.9 Chronic kidney disease, unspecified; G47.00 Insomnia, unspecified; X58.XXXA Exposure to other specified factors, initial encounter; L22 Diaper dermatitis; Z66 Do not resuscitate; R53.81 Other malaise; F02.80 Dementia in other diseases classified elsewhere, unspecified severity, without behavioral disturbance, psychotic disturbance, mood disturbance, and anxiety; I12.9 Hypertensive chronic kidney disease with stage 1 through stage 4 chronic kidney disease, or unspecified chronic kidney disease; L72.3 Sebaceous cyst; G20 Parkinson's disease; Z20.822 Contact with and (suspected) exposure to COVID-19; G62.9 Polyneuropathy, unspecified; F32.9 Major depressive disorder, single episode, unspecified; K21.9 Gastro-esophageal reflux disease without esophagitis; E03.9 Hypothyroidism, unspecified; Z88.8 Allergy status to other drugs, medicaments and biological substances; Y93.89 Activity, other specified; Y92.89 Other specified places as the place of occurrence of the external cause; Y99.8 Other external cause status
CPT/HCPCS: 10195